=== PATIENT | female | born 1940 | race Caucasian/White ===

== ENCOUNTER 2019-06-11 12:45 | Inpatient (IN) | payer MEDICARE, OTHER ==
[~2019-06-11 12:45] MED LIST: Nicotine 21 MG/24 Hr Patch TRDERM SCH
[2019-06-11] MEDS ORDERED: Ondansetron 4 MG/2 ML SDV IVPUSH PRN (14:04)
[2019-06-11] MEDS ORDERED: Levofloxacin/Dextrose 5%-Water 500 MG in Premix Bag 1 BAG IV SCH (14:15)
[2019-06-11] MEDS: Sodium Chloride 0.9% 10 ML Syringe FLUSH PRN ×3 (14:45→21:21)
[2019-06-11] MEDS ORDERED: cefTRIAXone 1 GM Vial IVPUSH SCH (14:45)
[2019-06-11] MEDS: methylPREDNISolone Sodium Succinate 125 MG/2 ML SDV IVPUSH SCH ×2 (14:51→21:18)
[2019-06-11] MEDS: Albuterol/Ipratropium 3.0-0.5 MG/3 ML Neb Soln NEB SCH ×2 (16:00→21:08)
[2019-06-11] MEDS ORDERED: Azithromycin 500 MG in Sodium Chloride 0.9% 250 ML IV SCH (16:00)
[2019-06-11] MEDS ORDERED: Enoxaparin 40 MG/0.4 ML Syringe SUBCUT SCH (16:00)
--- NOTE | 2019-06-11 17:53 | PCM.HP.2 ---
H&P History of Present Illness - General Date of Service: 06/11/19 Admit Problem/Dx: Admission Diagnosis/Problem Admission Diagnosis/Problem Pneumonia Source of Information: Patient History Limitations: Reports: No Limitations - History of Present Illness Initial Comments - Free Text/Narative: This is a 78-year-old female patient with history of COPD and he understood show pulmonary fibrosis has one week history which started with a head cold. She states she had lots of nasal congestion, night sweats and dry hacking cough. As the week went on it became productive with yellow sputum. He was seen in [place] and was given prednisone 40 mg a day and cephalexin. 3 days later she had not gotten any better and her breathing became worse so she saw Dr. Boss in the clinic and was sent over here for hospitalization. In the clinic chest x-ray according Dr. Boss showed COPD and pneumonia. Oxygen saturation was 89%. Patient was exposed to influenza 3 days before the symptoms started. Influenza clinic was negative. Patient states she can normally walk as far she wants. She states she can barely walk 1. 00-200 feet now without getting short of breath. She denies chest pain, leg swelling, PND, orthopnea, body aches, sore throat - Related Data Allergies/Adverse Reactions: Allergies Allergy/AdvReac Type Severity Reaction Status Date / Time clonazepam Allergy Unknown Other Verified 06/11/19 13:52 hydromorphone [From Dilaudid] Allergy Rash Verified 06/11/19 13:52 Penicillins Allergy Shortness Verified 06/11/19 13:52 of Breath Home Medications: Home Meds Albuterol [Proventil Neb Soln] 3 ml IH QID PRN 06/11/19 [History] Albuterol [Ventolin HFA] 2 puff IH Q6H PRN 06/11/19 [History] Baclofen 10 mg PO TID PRN 06/11/19 [History] Beta-Carotene(A) w/C & E/Min [Prosight] 1 tab PO DAILY 06/11/19 [History] Calcium/Magnesiu/Vitamin D 2 tab PO BID 06/11/19 [History] Cetirizine [ZyrTEC] 10 mg PO DAILY 06/11/19 [History] Cholecalciferol (Vitamin D3) [Vitamin D] 5,000 unit PO DAILY 06/11/19 [History] EPINEPHrine [Epipen] 0.3 mg IM ASDIRECTED PRN 06/11/19 [History] Gabapentin [Neurontin] 300 mg PO BEDTIME 06/11/19 [History] Mometasone Furoate [Nasonex] 1 - 2 spray NASBOTH DAILY 06/11/19 [History] Propylene Glycol/Peg 400 [Systane 0.3-0.4% Eye Drops] 1 drop EYEBOTH QID [History] Umeclidinium Brm/Vilanterol Tr [Anoro Ellipta 62.5-25 MCG] 62.5 mcg IH DAILY 12/22 [History] Venlafaxine [Effexor XR] 150 mg PO DAILY 06/11/19 [History] amLODIPine [Norvasc] 5 mg PO DAILY 06/11/19 [History] cephALEXin [Keflex] 1,000 mg PO BID 06/11/19 [History] diphenhydrAMINE [Benadryl] 25 mg PO Q6H PRN 06/11/19 [History] lamoTRIgine [Lamictal] 50 mg PO DAILY 06/11/19 [History] polyethylene glycoL 3350 [MiraLAX] 17 gm PO DAILY PRN 06/11/19 [History] traZODone 300 mg PO BEDTIME 06/11/19 [History] Past Medical History HEENT History: Reports: Allergic Rhinitis, Cataract, Glaucoma, Impaired Vision Cardiovascular History: Reports: Hypertension, Other (See Below) Other Cardiovascular History: irregular pulse Respiratory History: Reports: Bronchitis, Recurrent, COPD, Pneumonia, Recurrent Gastrointestinal History: Reports: Bowel Obstruction, Chronic Constipation, Hemorrhoids Genitourinary History: Reports: UTI, Recurrent 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/BYN History: Musculoskeletal History: Reports: Arthritis, Back Pain, Chronic, Osteoarthritis Neurological History: Reports: Concussion Psychiatric History: Reports: Anxiety, Dementia Hematologic History: Reports: Other (See Below) Other Hematologic History: thalecemia Dermatologic History: Reports: Cellulitis - Infectious Disease History Infectious Disease History: Reports: Chicken Pox, Measles, Rubella - Past Surgical History HEENT Surgical History: Reports: Adenoidectomy, Cataract Surgery, Oral Surgery, Polypectomy, Tonsillectomy, Other (See Below) Respiratory Surgical History: Reports: Lung Biopsies GI Surgical History: Reports: Appendectomy, Cholecystectomy, Colonoscopy, EGD Female Surgical History: Reports: Hysterectomy, Other (See Below) Other Female Surgeries/Procedures: bladder sling for recurrent bladder infection Neurological Surgical History: Reports: Laminectomy Other Neurological Surgeries/Procedures: x2 Musculoskeletal Surgical History: Reports: Other (See Below) Other Musculoskeletal Surgeries/Procedures:: Laminectomy x2. herniated disks in neck repaired. bulging disk in lower back. Social & Family History - Family History Family Medical History: Noncontributory - Tobacco Use Smoking Status *Q: Current Every Day Smoker Years of Tobacco use: 60 Packs/Tins Daily: 1 - Caffeine Use Caffeine Use: Reports: Coffee - Recreational Drug Use Recreational Drug Use: No H&P Review of Systems - Review of Systems: Review Of Systems: See Below General: Reports: Fever, Chills, Malaise, Weakness, Night Sweats HEENT: Reports: Post Nasal Drip, Sinus Congestion Pulmonary: Reports: Shortness of Breath, Wheezing, Cough, Sputum. Denies: Hemoptysis Cardiovascular: Reports: No Symptoms Gastrointestinal: Reports: No Symptoms Genitourinary: Reports: No Symptoms Musculoskeletal: Reports: No Symptoms Skin: Reports: No Symptoms Psychiatric: Reports: Depression, Anxiety Neurological: Reports: No Symptoms Hematologic/Lymphatic: Reports: No Symptoms Immunologic: Reports: No Symptoms Exam - Exam Exam: See Below - Vital Signs Vital Signs: Last Vital Signs Temp 97.5 F 06/11/19 13:50 Pulse 82 06/11/19 13:50 Resp 20 06/11/19 13:50 BP 121/66 06/11/19 13:50 Pulse Ox 94 L 06/11/19 13:50 Weight: 134 lb 6.4 oz - Exam General: Alert, Oriented, Cooperative HEENT: Conjunctiva Clear, Hearing Intact, Posterior Pharynx Clear, TMs Clear Neck: Supple, Trachea Midline. No: Carotid Bruit Lungs: Normal Respiratory Effort, Wheezing (very loud expiratory throughout bilateral.) GI/Abdominal Exam: Normal Bowel Sounds, Soft, Non-Tender, No Organomegaly, No Distention, No Abnormal Bruit, No Mass Back Exam: Normal Inspection, Full Range of Motion Extremities: Normal Inspection, Normal Range of Motion, Non-Tender, No Pedal Edema Skin: Warm, Dry, Intact Neurological: Normal Speech, Normal Tone Neuro Extensive - Mental Status: Alert, Oriented x3, Normal Mood/Affect, Normal Cognition Psychiatric: Alert, Normal Mood Sepsis Event Note - Evaluation Sepsis Screening Result: No Definite Risk - Focused Exam Vital Signs: Vital Signs Temp Pulse Resp BP Pulse Ox 06/11/19 13:50 97.5 F 82 20 121/66 94 L Date Exam was Performed: 06/11/19 Time Exam was Performed: 17:47 - Problem List (1) Pneumonia SNOMED Code(s): 380738922 ICD Code: J18.9 - PNEUMONIA, UNSPECIFIED ORGANISM Status: Acute Current Visit: Yes (2) COPD exacerbation SNOMED Code(s): 554380608 ICD Code: J44.1 - CHRONIC OBSTRUCTIVE PULMONARY DISEASE W (ACUTE) EXACERBATION Status: Acute Current Visit: Yes (3) Interstitial pulmonary fibrosis SNOMED Code(s): 25856136 ICD Code: J84.10 - PULMONARY FIBROSIS, UNSPECIFIED Status: Acute Current Visit: Yes (4) Hypoxia SNOMED Code(s): 895755595 ICD Code: R09.02 - HYPOXEMIA Status: Acute Current Visit: Yes (5) Palliative care status SNOMED Code(s): 934842897 ICD Code: Z51.5 - ENCOUNTER FOR PALLIATIVE CARE Status: Acute Current Visit: Yes (6) Hyponatremia SNOMED Code(s): 58718139 ICD Code: E87.1 - HYPO-OSMOLALITY AND HYPONATREMIA Status: Acute Current Visit: Yes Problem List Initiated/Reviewed/Updated: Yes Orders Last 24hrs: Active Orders 24 hr Category Date Time Status Patient Status [ADT] Routine ADT 06/11/19 14:04 Active Ambulate [RC] ASDIRECTED Care 06/11/19 14:04 Active Height and Weight [RC] 06 Care 06/11/19 14:04 Active Oxygen Therapy [RC] PRN Care 06/11/19 14:04 Active RT Aerosol Therapy [RC] ASDIRECTED Care 06/11/19 14:05 Active VTE/DVT Education [RC] Per Unit Routine Care 06/11/19 14:04 Active Vital Signs [RC] 08,16,00 Care 06/11/19 14:04 Active Regular Diet [DIET] Diet 06/11/19 Breakfast Active BASIC METABOLIC PANEL,BMP [CHEM] AM Lab 06/12/19 05:11 Ordered CBC WITH AUTO DIFF [HEME] AM Lab 06/12/19 05:11 Ordered CULTURE BLOOD [BC] Urgent Lab 06/11/19 14:25 Received CULTURE BLOOD [BC] Urgent Lab 06/11/19 14:25 Received CULTURE SPUTUM + SMEAR [RM] Stat Lab 06/11/19 16:55 Received Albuterol/Ipratropium [DuoNeb 3.0-0.5 MG/3 ML] Med 06/11/19 16:00 Active 3 ml NEB QIDRT Azithromycin [Zithromax] 500 mg Med 06/11/19 16:00 Active Sodium Chloride 0.9% [Normal Saline] 250 ml IV Q24H Enoxaparin [Lovenox] Med 06/11/19 16:00 Active 40 mg SUBCUT DAILY@1600 Ondansetron [Zofran] Med 06/11/19 14:04 Active 4 mg IVPUSH Q4H PRN Sodium Chloride 0.9% [Saline Flush] Med 06/11/19 14:04 Active 10 ml FLUSH ASDIRECTED PRN cefTRIAXone [Rocephin] Med 06/11/19 14:45 Active 1 gm IVPUSH Q24H methylPREDNISolone Sod Succ [Solu-MEDROL] Med 06/11/19 14:15 Active 125 mg IVPUSH Q8H Blood Culture x2 Reflex Set [OM.PC] Urgent Oth 06/11/19 14:04 Ordered Peripheral IV Insertion Adult [OM.PC] Routine Oth 06/11/19 14:04 Ordered Sequential Compression Device [OM.PC] Per Unit Routine Oth 06/11/19 14:05 Ordered Resuscitation Status Routine Resus Stat 06/11/19 14:04 Ordered Medication Orders Albuterol/Ipratropium (Duoneb 3.0-0.5 Mg/3 Ml) 3 ml NEB QIDRT [facility] Last Admin: 06/11/19 16:00 Dose: 3 ml Ceftriaxone Sodium (Rocephin) 1 gm IVPUSH Q24H [facility] Last Admin: 06/11/19 14:52 Dose: 1 gm Enoxaparin Sodium (Lovenox) 40 mg SUBCUT DAILY@1600 [facility] Last Admin: 06/11/19 16:07 Dose: 40 mg Azithromycin 500 mg/ Sodium (Chloride) 250 mls @ 250 mls/hr IV Q24H [facility] Last Admin: 06/11/19 16:00 Dose: 250 mls/hr Methylprednisolone Sodium Succinate (Solu-Medrol) 125 mg IVPUSH Q8H [facility] Last Admin: 06/11/19 14:51 Dose: 125 mg Ondansetron HCl (Zofran) 4 mg IVPUSH Q4H PRN PRN Reason: Nausea/Vomiting Sodium Chloride (Saline Flush) 10 ml FLUSH ASDIRECTED PRN PRN Reason: Keep Vein Open Last Admin: 06/11/19 16:00 Dose: 10 ml Admin: 06/11/19 14:45 Dose: 10 ml Assessment/Plan Comment:: 1 admit to inpatient 2. CODE STATUS is full code. 3. Antibiotics, Solu-Medrol 4. Lovenox for VTE prophylaxis 5. Continue her regular medications except for the cephalexin and prednisone. 6. Nebulizer treatments every 4 hours and when necessary. 7. Regular diet 8. O2 to keep sats greater then 90% 9. Up ad hipolito. 10. IV to saline lock - Mortality Measure Prognosis:: Good
[2019-06-11] MEDS ORDERED: Albuterol 0.083% 2.5 MG/3 ML Neb Soln INH PRN (17:54)
[2019-06-11] MEDS ORDERED: diphenhydrAMINE 25 MG Cap PO PRN (17:54)
[2019-06-11] MEDS ORDERED: Baclofen 10 MG Tab PO PRN (17:54)
[2019-06-11] MEDS ORDERED: Polyethylene Glycol 3350 Powder 17 GM Packet PO PRN (17:54)
[2019-06-11] MEDS ORDERED: MAGNESIUM PO SCH (21:00)
[2019-06-11] MEDS ORDERED: traZODone 100 MG Tab PO SCH (21:00)
[2019-06-11] MEDS ORDERED: [UNRECOGNIZED DRUG - OTHER] PO SCH (21:00)
[2019-06-11] MEDS ORDERED: CALCIUM PO SCH (21:00)
[2019-06-11] MEDS ORDERED: Gabapentin 300 MG Cap PO SCH (21:00)
[2019-06-11] MEDS: PEG 400/Propylene Glycol Ophth Soln 15 ML Bottle EYEBOTH SCH (21:18)
[2019-06-11] MEDS ORDERED: traZODone 50 MG Tab ONE (21:50)
[2019-06-11] MEDS ORDERED: traZODone 50 MG Tab PO SCH (22:00)
[2019-06-12] MEDS: methylPREDNISolone Sodium Succinate 125 MG/2 ML SDV IVPUSH SCH (06:23)
[2019-06-12] MEDS: Sodium Chloride 0.9% 10 ML Syringe FLUSH PRN (06:24)
[2019-06-12] MEDS: Albuterol/Ipratropium 3.0-0.5 MG/3 ML Neb Soln NEB SCH (06:25)
--- NOTE | 2019-06-12 08:58 | PCM.PN ---
- General Info Date of Service: 06/12/19 Admission Dx/Problem (Free Text): The patient feels much better today. She says her wheezing is now gone. Cough is minimal. She denies fevers, chills or sweats. She asked if she can go home. She states that she has an appointment with pulmonary medicine in 2 days which is previously scheduled. - Patient Data Vitals - Most Recent: Last Vital Signs Temp 97.4 F 06/11/19 23:20 Pulse 61 06/11/19 23:20 Resp 20 06/11/19 23:20 BP 151/82 H 06/11/19 23:20 Pulse Ox 95 06/11/19 23:20 Weight - Most Recent: 131 lb 9.6 oz Lab Results Last 24 Hours: Laboratory Results - last 24 hr 06/12/19 06/12/19 Range/Units 06:25 06:25 WBC 8.3 (4.5-12.0) X10-3/uL RBC 4.88 (3.23-5.20) x10(6)uL Hgb 11.9 (11.5-15.5) g/dL Hct 36.9 (30.0-51.3) % MCV 75.6 L (80-96) fL MCH 24.3 L (27.7-33.6) pg MCHC 32.2 (32.2-35.4) g/dL RDW 13.7 (11.5-15.5) % Plt Count 305 (125-369) X10(3)uL MPV 8.0 (7.4-10.4) fL Add Manual Diff Yes Neutrophils % (Manual) 86 H (46-82) % Lymphocytes % (Manual) 12 L (13-37) % Monocytes % (Manual) 2 L (4-12) % Hypochromasia Few Microcytosis Few Sodium 138 (135-145) mmol/L Potassium 4.3 (3.5-5.3) mmol/L Chloride 102 (100-110) mmol/L Carbon Dioxide 32 (21-32) mmol/L BUN 11 (7-18) mg/dL Creatinine 0.8 (0.55-1.02) mg/dL Est Cr Clr Drug Dosing 51.92 mL/min Estimated GFR (MDRD) > 60 (>60) BUN/Creatinine Ratio 13.8 (9-20) Glucose 140 H (80-116) mg/dL Calcium 8.7 (8.6-10.2) mg/dL Prasanna Results Last 24 Hours: Microbiology 06/11/19 16:55 Gram Stain - Final Sputum - Expectorated Med Orders - Current: Current Medications Albuterol (Proventil Neb Soln) 2.5 mg INH QID PRN PRN Reason: Shortness of Breath Albuterol/Ipratropium (Duoneb 3.0-0.5 Mg/3 Ml) 3 ml NEB QIDRT [facility] Last Admin: 06/12/19 06:25 Dose: 3 ml Amlodipine Besylate (Norvasc) 5 mg PO DAILY [facility] Baclofen (Lioresal) 10 mg PO TID PRN PRN Reason: MUSCLE SPASMS Ceftriaxone Sodium (Rocephin) 1 gm IVPUSH Q24H [facility] Last Admin: 06/11/19 14:52 Dose: 1 gm Cetirizine HCl (Zyrtec) 10 mg PO DAILY [facility] Cholecalciferol (Vitamin D3) 125 mcg PO DAILY [facility] Diphenhydramine HCl (Benadryl) 25 mg PO Q6H PRN PRN Reason: Itching Enoxaparin Sodium (Lovenox) 40 mg SUBCUT DAILY@1600 [facility] Last Admin: 06/11/19 16:07 Dose: 40 mg Gabapentin (Neurontin) 300 mg PO BEDTIME [facility] Last Admin: 06/11/19 21:10 Dose: 300 mg Azithromycin 500 mg/ Sodium (Chloride) 250 mls @ 250 mls/hr IV Q24H [facility] Last Admin: 06/11/19 16:00 Dose: 250 mls/hr Lamotrigine (Lamotrigine) 50 mg PO DAILY [facility] Methylprednisolone Sodium Succinate (Solu-Medrol) 125 mg IVPUSH Q8H [facility] Last Admin: 06/12/19 06:23 Dose: 125 mg Multivitamins/Minerals (Prosight) 1 tab PO DAILY [facility] Nicotine (Habitrol) 21 mg TRDERM Q24H [facility] Non-Formulary Medication (Calcium/Magnesiu/Vitamin D) 2 tab PO BID [facility] Ondansetron HCl (Zofran) 4 mg IVPUSH Q4H PRN PRN Reason: Nausea/Vomiting Polyethylene Glycol (Miralax) 17 gm PO DAILY PRN PRN Reason: Constipation Propylene Glycol (Systane Lubricant) 0 ml EYEBOTH QID [facility] Last Admin: 06/11/19 21:18 Dose: 1 drop Sodium Chloride (Saline Flush) 10 ml FLUSH ASDIRECTED PRN PRN Reason: Keep Vein Open Last Admin: 06/12/19 06:24 Dose: 10 ml Trazodone HCl (Trazodone) 300 mg PO BEDTIME [facility] Last Admin: 06/11/19 22:00 Dose: 300 mg Umeclidinium/Vilanterol (Anoro Ellipta 62.5-25 Mcg) 62.5 mcg IH DAILY [facility] Venlafaxine HCl (Effexor Xr) 150 mg PO DAILY [facility] Discontinued Medications Nicotine (Habitrol) 21 mg TRDERM DAILY [facility] Last Admin: 06/11/19 18:47 Dose: 21 mg Trazodone HCl (Trazodone) Confirm Administered Dose 300 mg .ROUTE .STK-MED ONE Stop: 06/11/19 21:51 Last Admin: 06/11/19 21:59 Dose: Not Given - Exam General: Alert, Oriented, Cooperative Neck: Supple Lungs: Clear to Auscultation, Normal Respiratory Effort. No: Crackles, Rales, Rhonchi, Wheezing Cardiovascular: Regular Rate, Regular Rhythm, No Murmurs Sepsis Event Note - Evaluation Sepsis Screening Result: No Definite Risk - Focused Exam Vital Signs: Vital Signs Temp Pulse Resp BP Pulse Ox Pulse Ox 06/11/19 23:20 97.4 F 61 20 151/82 H 95 06/11/19 21:30 95 Date Exam was Performed: 06/12/19 Time Exam was Performed: 08:56 - Problem List & Annotations (1) Pneumonia SNOMED Code(s): 137863909 Code(s): J18.9 - PNEUMONIA, UNSPECIFIED ORGANISM Status: Acute Current Visit: Yes (2) COPD exacerbation SNOMED Code(s): 410107813 Code(s): J44.1 - CHRONIC OBSTRUCTIVE PULMONARY DISEASE W (ACUTE) EXACERBATION Status: Acute Current Visit: Yes (3) Interstitial pulmonary fibrosis SNOMED Code(s): 06511482 Code(s): J84.10 - PULMONARY FIBROSIS, UNSPECIFIED Status: Acute Current Visit: Yes (4) Hypoxia SNOMED Code(s): 461003681 Code(s): R09.02 - HYPOXEMIA Status: Acute Current Visit: Yes (5) Palliative care status SNOMED Code(s): 053762807 Code(s): Z51.5 - ENCOUNTER FOR PALLIATIVE CARE Status: Acute Current Visit: Yes (6) Hyponatremia SNOMED Code(s): 59571337 Code(s): E87.1 - HYPO-OSMOLALITY AND HYPONATREMIA Status: Acute Current Visit: Yes - Problem List Review Problem List Initiated/Reviewed/Updated: Yes - My Orders Last 24 Hours: My Active Orders 06/11/19 17:54 Albuterol [Proventil Neb Soln] 2.5 mg INH QID PRN Baclofen [Lioresal] 10 mg PO TID PRN diphenhydrAMINE [Benadryl] 25 mg PO Q6H PRN polyethylene glycoL 3350 [MiraLAX] 17 gm PO DAILY PRN 06/11/19 21:00 Calcium/Magnesiu/Vitamin D 2 tab PO BID Gabapentin [Neurontin] 300 mg PO BEDTIME PEG 400/Propylene Glycol [Systane Lubricant] 0 ml EYEBOTH QID 06/11/19 22:00 traZODone 300 mg PO BEDTIME 06/12/19 08:55 Ready for Discharge [RC] PER UNIT ROUTINE 06/12/19 09:00 Beta-Carotene(A) w/C & E/Min [Prosight] 1 tab PO DAILY Cetirizine [ZyrTEC] 10 mg PO DAILY Cholecalciferol (Vitamin D3) [Vitamin D3] 125 mcg PO DAILY Umeclidinium Brm/Vilanterol Tr [Anoro Ellipta 62.5-25 MCG] 62.5 mcg IH DAILY Venlafaxine [Effexor XR] 150 mg PO DAILY amLODIPine [Norvasc] 5 mg PO DAILY lamoTRIgine 50 mg PO DAILY 06/12/19 18:00 Nicotine [Habitrol] 21 mg TRDERM Q24H - Plan Plan:: Patient is very much improved. I think would be okay to send her home with the previously prescribed prednisone 40 mg daily for 7 days, Z-David and then I'll add doxycycline 100 mg twice a day for 10 days. She has oxygen at home and nebulizers already. She'll follow-up with me in [facility] in 1 week.
[2019-06-12] MEDS ORDERED: Beta-Carotene (Vitamin A) w/Vitamin C & E plus Minerals Tab PO SCH (09:00)
[2019-06-12] MEDS ORDERED: amLODIPine 5 MG Tab PO SCH (09:00)
[2019-06-12] MEDS ORDERED: Cetirizine 10 MG Tab PO SCH (09:00)
[2019-06-12] MEDS ORDERED: Cholecalciferol (Vitamin D3) 25 MCG Tab PO SCH (09:00)
[2019-06-12] MEDS ORDERED: Umeclidinium Brm/Vilanterol Tr 62.5-25 MCG 7 Puff Inhaler IH SCH (09:00)
[2019-06-12] MEDS ORDERED: Venlafaxine 150 MG Cap.ER PO SCH (09:00)
[2019-06-12] MEDS ORDERED: lamoTRIgine 25 MG Tab PO SCH (09:00)
--- NOTE | 2019-06-12 09:00 | PCM.DCSUM1 ---
Discharge Summary - Hospital Course Free Text/Narrative:: hospital course-she was put on Solu-Medrol 125 mg every 8 hours with Rocephin and Zithromax IV. She was very wheezy when I examined her. By the next morning her wheezing was completely gone she was not short of breath at all. Her white count was 11.41 down to normal. Her electrolytes showed blood sugar slightly elevated 140. She asked if she could go home because she has home oxygen and nebulizers. After examining her in the lungs being clear and she has no respiratory distress. I believe that it's okay to send her home. She already has prednisone 40 mg a day for 7 days ordered. She has a Z-David ordered and this is all done the clinic. She continue that and will add doxycycline 100 mg twice a day for 10 days. She'll follow-up with me in the clinic in [facility] in 1 week. She has a pulmonary appointment in 2 days. Brief History: This is a 78-year-old female patient with history of COPD and he understood show pulmonary fibrosis has one week history which started with a head cold. She states she had lots of nasal congestion, night sweats and dry hacking cough. As the week went on it became productive with yellow sputum. He was seen in [place] and was given prednisone 40 mg a day and cephalexin. 3 days later she had not gotten any better and her breathing became worse so she saw Dr. Boss in the clinic and was sent over here for hospitalization. In the clinic chest x-ray according Dr. Boss showed COPD and pneumonia. Oxygen saturation was 89%. Patient was exposed to influenza 3 days before the symptoms started. Influenza clinic was negative. Patient states she can normally walk as far she wants. She states she can barely walk 1. 00-200 feet now without getting short of breath. She denies chest pain, leg swelling, PND, orthopnea, body aches, sore throat Diagnosis: Stroke: No - Discharge Data Discharge Date: 06/12/19 Discharge Disposition: Home, Self-Care 01 Condition: Good - Referral to Home Health Primary Care Physician: Jigar Boss MD - Discharge Diagnosis/Problem(s) (1) Pneumonia SNOMED Code(s): 334092917 ICD Code: J18.9 - PNEUMONIA, UNSPECIFIED ORGANISM Status: Acute Current Visit: Yes (2) COPD exacerbation SNOMED Code(s): 681955071 ICD Code: J44.1 - CHRONIC OBSTRUCTIVE PULMONARY DISEASE W (ACUTE) EXACERBATION Status: Acute Current Visit: Yes (3) Interstitial pulmonary fibrosis SNOMED Code(s): 97294108 ICD Code: J84.10 - PULMONARY FIBROSIS, UNSPECIFIED Status: Acute Current Visit: Yes (4) Hypoxia SNOMED Code(s): 578971700 ICD Code: R09.02 - HYPOXEMIA Status: Acute Current Visit: Yes (5) Palliative care status SNOMED Code(s): 452432408 ICD Code: Z51.5 - ENCOUNTER FOR PALLIATIVE CARE Status: Acute Current Visit: Yes (6) Hyponatremia SNOMED Code(s): 15735876 ICD Code: E87.1 - HYPO-OSMOLALITY AND HYPONATREMIA Status: Acute Current Visit: Yes - Patient Instructions Diet: Regular Diet as Tolerated Activity: As Tolerated Driving: May Drive Today Showering/Bathing: May Shower Notify Provider of: Fever, Increased Pain Other/Special Instructions: 1. Recheck with Dr. Richards in [place] next Tuesday. 2. Patient will follow-up with pulmonary medicine in 2 days. Previously scheduled appointment. - Discharge Plan Prescriptions/Med Rec: Doxycycline [Vibramycin] 100 mg PO DAILY #20 cap Home Medications: Home Meds Albuterol [Proventil Neb Soln] 3 ml IH QID PRN 06/11/19 [History] Albuterol [Ventolin HFA] 2 puff IH Q6H PRN 06/11/19 [History] Baclofen 10 mg PO TID PRN 06/11/19 [History] Beta-Carotene(A) w/C & E/Min [Prosight] 1 tab PO DAILY 06/11/19 [History] Calcium/Magnesiu/Vitamin D 2 tab PO BID 06/11/19 [History] Cetirizine [ZyrTEC] 10 mg PO DAILY 06/11/19 [History] Cholecalciferol (Vitamin D3) [Vitamin D] 5,000 unit PO DAILY 06/11/19 [History] EPINEPHrine [Epipen] 0.3 mg IM ASDIRECTED PRN 06/11/19 [History] Gabapentin [Neurontin] 300 mg PO BEDTIME 06/11/19 [History] Mometasone Furoate [Nasonex] 1 - 2 spray NASBOTH DAILY 06/11/19 [History] Propylene Glycol/Peg 400 [Systane 0.3-0.4% Eye Drops] 1 drop EYEBOTH QID [History] Umeclidinium Brm/Vilanterol Tr [Anoro Ellipta 62.5-25 MCG] 62.5 mcg IH DAILY 12/22 [History] Venlafaxine [Effexor XR] 150 mg PO DAILY 06/11/19 [History] amLODIPine [Norvasc] 5 mg PO DAILY 06/11/19 [History] cephALEXin [Keflex] 1,000 mg PO BID 06/11/19 [History] diphenhydrAMINE [Benadryl] 25 mg PO Q6H PRN 06/11/19 [History] lamoTRIgine [Lamictal] 50 mg PO DAILY 06/11/19 [History] polyethylene glycoL 3350 [MiraLAX] 17 gm PO DAILY PRN 06/11/19 [History] traZODone 300 mg PO BEDTIME 06/11/19 [History] Azithromycin [Zithromax] 500 mg IV Q24H vial 06/12/19 [Rx] Doxycycline [Vibramycin] 100 mg PO DAILY #20 cap 06/12/19 [Rx] Oxygen Therapy Mode: Nasal Cannula Patient Handouts: Fall Prevention in the Home, Adult, [id number], Venous Thromboembolism Prevention, Community-Acquired Pneumonia, Adult, [id number] - Discharge Summary/Plan Comment DC Time >30 min.: No - Patient Data Vitals - Most Recent: Last Vital Signs Temp 97.4 F 06/11/19 23:20 Pulse 61 06/11/19 23:20 Resp 20 06/11/19 23:20 BP 151/82 H 06/11/19 23:20 Pulse Ox 95 06/11/19 23:20 Weight - Most Recent: 131 lb 9.6 oz Lab Results - Last 24 hrs: Laboratory Results - last 24 hr 06/12/19 06/12/19 Range/Units 06:25 06:25 WBC 8.3 (4.5-12.0) X10-3/uL RBC 4.88 (3.23-5.20) x10(6)uL Hgb 11.9 (11.5-15.5) g/dL Hct 36.9 (30.0-51.3) % MCV 75.6 L (80-96) fL MCH 24.3 L (27.7-33.6) pg MCHC 32.2 (32.2-35.4) g/dL RDW 13.7 (11.5-15.5) % Plt Count 305 (125-369) X10(3)uL MPV 8.0 (7.4-10.4) fL Add Manual Diff Yes Neutrophils % (Manual) 86 H (46-82) % Lymphocytes % (Manual) 12 L (13-37) % Monocytes % (Manual) 2 L (4-12) % Hypochromasia Few Microcytosis Few Sodium 138 (135-145) mmol/L Potassium 4.3 (3.5-5.3) mmol/L Chloride 102 (100-110) mmol/L Carbon Dioxide 32 (21-32) mmol/L BUN 11 (7-18) mg/dL Creatinine 0.8 (0.55-1.02) mg/dL Est Cr Clr Drug Dosing 51.92 mL/min Estimated GFR (MDRD) > 60 (>60) BUN/Creatinine Ratio 13.8 (9-20) Glucose 140 H (80-116) mg/dL Calcium 8.7 (8.6-10.2) mg/dL KEISHA Results - Last 24 hrs: Microbiology 06/11/19 16:55 Gram Stain - Final Sputum - Expectorated Med Orders - Current: Current Medications Albuterol (Proventil Neb Soln) 2.5 mg INH QID PRN PRN Reason: Shortness of Breath Albuterol/Ipratropium (Duoneb 3.0-0.5 Mg/3 Ml) 3 ml NEB QIDRT [facility] Last Admin: 06/12/19 06:25 Dose: 3 ml Amlodipine Besylate (Norvasc) 5 mg PO DAILY [facility] Baclofen (Lioresal) 10 mg PO TID PRN PRN Reason: MUSCLE SPASMS Ceftriaxone Sodium (Rocephin) 1 gm IVPUSH Q24H [facility] Last Admin: 06/11/19 14:52 Dose: 1 gm Cetirizine HCl (Zyrtec) 10 mg PO DAILY [facility] Cholecalciferol (Vitamin D3) 125 mcg PO DAILY [facility] Diphenhydramine HCl (Benadryl) 25 mg PO Q6H PRN PRN Reason: Itching Enoxaparin Sodium (Lovenox) 40 mg SUBCUT DAILY@1600 [facility] Last Admin: 06/11/19 16:07 Dose: 40 mg Gabapentin (Neurontin) 300 mg PO BEDTIME [facility] Last Admin: 06/11/19 21:10 Dose: 300 mg Azithromycin 500 mg/ Sodium (Chloride) 250 mls @ 250 mls/hr IV Q24H [facility] Last Admin: 06/11/19 16:00 Dose: 250 mls/hr Lamotrigine (Lamotrigine) 50 mg PO DAILY [facility] Methylprednisolone Sodium Succinate (Solu-Medrol) 125 mg IVPUSH Q8H [facility] Last Admin: 06/12/19 06:23 Dose: 125 mg Multivitamins/Minerals (Prosight) 1 tab PO DAILY [facility] Nicotine (Habitrol) 21 mg TRDERM Q24H [facility] Non-Formulary Medication (Calcium/Magnesiu/Vitamin D) 2 tab PO BID [facility] Ondansetron HCl (Zofran) 4 mg IVPUSH Q4H PRN PRN Reason: Nausea/Vomiting Polyethylene Glycol (Miralax) 17 gm PO DAILY PRN PRN Reason: Constipation Propylene Glycol (Systane Lubricant) 0 ml EYEBOTH QID [facility] Last Admin: 06/11/19 21:18 Dose: 1 drop Sodium Chloride (Saline Flush) 10 ml FLUSH ASDIRECTED PRN PRN Reason: Keep Vein Open Last Admin: 06/12/19 06:24 Dose: 10 ml Trazodone HCl (Trazodone) 300 mg PO BEDTIME [facility] Last Admin: 06/11/19 22:00 Dose: 300 mg Umeclidinium/Vilanterol (Anoro Ellipta 62.5-25 Mcg) 62.5 mcg IH DAILY [facility] Venlafaxine HCl (Effexor Xr) 150 mg PO DAILY [facility] Discontinued Medications Nicotine (Habitrol) 21 mg TRDERM DAILY [facility] Last Admin: 06/11/19 18:47 Dose: 21 mg Trazodone HCl (Trazodone) Confirm Administered Dose 300 mg .ROUTE .STK-MED ONE Stop: 06/11/19 21:51 Last Admin: 06/11/19 21:59 Dose: Not Given
[2019-06-12] MEDS: PEG 400/Propylene Glycol Ophth Soln 15 ML Bottle EYEBOTH SCH (09:37)
[2019-06-12] MEDS ORDERED: Nicotine 21 MG/24 Hr Patch TRDERM SCH (18:00)
== END 2019-06-12 10:05 | disposition home or self-care (01) | DRG 190 ==
LOC: OBSVTOIN 13:25 → FB.MS 13:25
PROVIDERS: ADMIT Family Medicine; ATTEND Family Medicine
DX: J44.1 Chronic obstructive pulmonary disease with (acute) exacerbation (principal); J18.9 Pneumonia, unspecified organism; E87.1 Hypo-osmolality and hyponatremia; J44.0 Chronic obstructive pulmonary disease with (acute) lower respiratory infection; F17.210 Nicotine dependence, cigarettes, uncomplicated; J84.10 Pulmonary fibrosis, unspecified; Z51.5 Encounter for palliative care; R09.02 Hypoxemia; H54.7 Unspecified visual loss; H40.9 Unspecified glaucoma; I10 Essential (primary) hypertension; M19.90 Unspecified osteoarthritis, unspecified site; M54.9 Dorsalgia, unspecified; G89.29 Other chronic pain; F03.90 Unspecified dementia, unspecified severity, without behavioral disturbance, psychotic disturbance, mood disturbance, and anxiety; F41.9 Anxiety disorder, unspecified; Z90.89 Acquired absence of other organs; Z98.49 Cataract extraction status, unspecified eye; Z88.0 Allergy status to penicillin; Z88.8 Allergy status to other drugs, medicaments and biological substances; Z79.51 Long term (current) use of inhaled steroids; Z79.2 Long term (current) use of antibiotics; Z79.899 Other long term (current) drug therapy; Z90.49 Acquired absence of other specified parts of digestive tract; Z90.710 Acquired absence of both cervix and uterus
CPT/HCPCS: 36415; 80048; 85025; 87040; 87070; 87077; 87186; 87205; 94640; A9270-GY; J0456; J0696; J1650; J2930; J7050; J7620-GY